=== PATIENT | female | born 1995 | race Caucasian/White ===

== ENCOUNTER 2016-09-28 03:53 | Emergency (ER) | payer SELFPAY ==
[2016-09-28] MEDS ORDERED: LORazepam 1 MG TAB PO ONE (04:20)
[2016-09-28] MEDS ORDERED: LORazepam 1 MG TAB ONE (04:25)
--- NOTE | 2016-09-28 05:34 | EDPHY ---
H & P Stated Complaint: chest pressure, anxiety, palpitations worse tonight; restarted Adderall Sun Time Seen by Provider: 09/28/16 04:04 HPI/ROS: HPI The patient presents with palpitations and chest tightness which began earlier this evening when she was trying to sleep at about 10:00 p.m.. She has been unable to rest because of this. The palpitations are intermittent, moderate in severity and are felt in her chest and also in her neck. She restarted her Adderall at 30 mg several days ago after being off of it for the last 1 month. She did take a dose of Unisom tonight in an effort to sleep as well. She denies any shortness of breath, nausea or vomiting. She has not had any fevers or chills.. REVIEW OF SYSTEMS Constitutional: No fever, no chills. Eyes: No discharge. ENT: No sore throat. Cardiovascular: See HPI Respiratory: No cough, no shortness of breath. Gastrointestinal: No abdominal pain, no vomiting. Genitourinary: No hematuria. Musculoskeletal: No back pain. Skin: No rashes. Neurological: No headache. PMHx: Attention deficit hyperactivity disorder Soc Hx: Here with her uncle PHYSICAL General Appearance: Alert, no distress Eyes: Pupils equal and round no pallor or injection ENT, Mouth: Mucous membranes moist Respiratory: There are no retractions, lungs are clear to auscultation Cardiovascular: Tachycardic rate and regular rhythm Gastrointestinal: Abdomen is soft and non-tender, no masses, bowel sounds normal Neurological: A&O, moves all extremities Skin: Warm and dry, no rashes Musculoskeletal: Neck is supple non tender Extremities: symmetrical, full range of motion Psychiatric: Patient is oriented X 3, there is no agitation Source: Patient Exam Limitations: No limitations - Personal History LMP (Females 10-55): 15-21 Days Ago Current Tetanus/Diphtheria Vaccine: Unsure - Medical/Surgical History Hx Asthma: No Hx Chronic Respiratory Disease: No Hx Diabetes: No Hx Cardiac Disease: No Hx Renal Disease: No Hx Cirrhosis: No Hx Alcoholism: No Hx HIV/AIDS: No Hx Splenectomy or Spleen Trauma: No Other PMH: ADHD. no PSH - Social History Smoking Status: Heavy smoker Constitutional: Initial Vital Signs Temperature (C) 37 C 09/28/16 03:58 Heart Rate 110 H 09/28/16 03:58 Respiratory Rate 17 09/28/16 03:58 Blood Pressure 128/83 H 09/28/16 03:58 O2 Sat (%) 99 09/28/16 03:58 O2 Delivery Mode Room Air Allergies/Adverse Reactions: codeine Allergy (Verified 09/28/16 03:57) Home Medications: Medication Instructions Recorded Adderall 30 mg Tablet 09/28/16 Medical Decision Making - Diagnostics EKG Interpretation: EKG: Complete interpretation has been separately recorded in the [facility] archive. Summary impression: Normal sinus rhythm Imaging Results: Chest x-ray two views shows no acute findings, interpreted by me, radiology interpretation is pending. Differential Diagnosis: This is a 20-year-old healthy female with attention deficit hyperactivity disorder who presents from home with palpitations for the last several hours preventing her from sleep. She recently restarted Adderall and took her last dose at 3:00 p.m. today. On exam, she is well-appearing, she has a sinus tachycardia. She is feeling somewhat anxious. Differential diagnosis includes SVT, PACs, anxiety attack, Adderall side-effect , pneumothorax. In the emergency room, the patient was given Ativan with improvement in her symptoms. Her heart rate remained in the 80s. She felt well. EKG and chest x- ray were unremarkable. I feel her symptoms may be related to re-initiation of Adderall and I have explained this to her. She will be discharged from the emergency room. - Data Points Medications Given: Discontinued Medications Lorazepam (Ativan) 1 mg PO EDNOW ONE Stop: 09/28/16 04:21 Last Admin: 09/28/16 04:23 Dose: 1 mg Departure - Departure Disposition: Home, Routine, Self-Care Clinical Impression: Palpitations Condition: Good Instructions: Palpitations (ED) Additional Instructions: Your symptoms are likely related to Adderall use. Please return to the emergency room if your worse in any way. You may want to try smaller dose of Adderall the need to take it. Referrals: NONE *PRIMARY CARE P,. [Primary Care Provider] - As per Instructions
[2016-09-28 06:05] VITALS: BP 124/75; PULSE 81; RESP 20; TEMP 98.2; O2SAT 98
--- NOTE | 2016-09-28 09:10 | CPEKG ---
Heart Rate: 100 RR Interval: 600 P-R Interval: 132 QRSD Interval: 76 QT Interval: 348 QTC Interval: 449 P [place]: 72 QRS [place]: 50 T Wave [place]: 32 EKG Severity - OTHERWISE NORMAL ECG - EKG Impression: SINUS TACHYCARDIA Electronically Signed By: Mina Nye 29-Sep-2016 14:14:24
== END 2016-09-28 06:04 | disposition home or self-care (01) ==
DX: R00.2 Palpitations (principal); F17.200 Nicotine dependence, unspecified, uncomplicated